=== PATIENT | female | born 1980 | race Caucasian/White ===

== ENCOUNTER 2017-01-11 08:43 | Inpatient (IN) | payer OTHER ==
[~2017-01-11] VITALS: Ht 152.4 cm; Wt 72.1 kg
[~2017-01-11 08:43] MED LIST: EPHEDrine SULFATE 50 MG/ML VIAL IM ONE; ONDANSETRON HCL 4 MG/2 ML VIAL IVP ONE; OXYTOCIN 10 UNITS/ML VIAL IM ONE; PREN1TAB52 PO
[2017-01-11] MEDS ORDERED: RINGERS SOLUTION,LACTATED 1,000 ML IV ONE (08:57)
[2017-01-11] MEDS ORDERED: METOCLOPRAMIDE HCL 5 MG/ML 2 ML VIAL IVP ONE (09:00)
[2017-01-11] MEDS ORDERED: CITRIC ACID/SODIUM CITRATE 30 ML SOLUTION UDCUP PO ONE (09:00)
[2017-01-11 09:39] VITALS: BP 116/79
[2017-01-11 09:56] LABS: BASOPHILS % (AUTO) 0.6 % (0.0-2.0); EOSINOPHILS % (AUTO) 0.3 % (1.0-6.0); HEMATOCRIT 36.4 % (36-46); HEMOGLOBIN 11.6 g/dL (12.0-16.0); LYMPHOCYTES # (AUTO) 2.6 K/uL (1.0-4.8); MEAN CORPUSCULAR HGB CONC 31.7 G/dL (31.0-37.0); MEAN CORPUSCULAR VOLUME 76 fL (80-100); MONOCYTES # (AUTO) 0.6 K/uL (0.1-1.0); MONOCYTES % (AUTO) 6.5 % (2.0-9.0); NEUTROPHILS # (AUTO) 6.3 K/uL (1.8-7.7); NEUTROPHILS % (AUTO) 65.6 % (40.0-70.0); PLATELET COUNT (AUTO) 160 K/uL (150-450); RED BLOOD CELL COUNT(AUTO) 4.82 MIL/uL (4.00-5.20); RED CELL DISTRIBUTION WIDTH 17.5 % (11.5-14.5); WHITE BLOOD COUNT (AUTO) 9.7 K/uL (4.5-11.0)
[2017-01-11 09:57] LABS: RBC MORPHOLOGY COMMENT ABNORMAL RBC MORPH
[2017-01-11] MEDS ORDERED: INFLUENZA VIRUS VACCINE QVS 2016-17 (3YR+)/PF 60 MCG/0.5 ML SYRINGE IM ONE (12:00)
[2017-01-11] MEDS ORDERED: GUM MASTIC/STORAX/MSAL/ALCOHOL LIQUID 0.67 ML VIAL TP ONE (13:08)
[2017-01-11] MEDS ORDERED: OXYTOCIN 30 UNITS/LACT RINGERS 500 ML IV ONE (13:25)
[2017-01-11] MEDS ORDERED: OxyCODONE HCL/ACETAMINOPHEN 5-325 MG TABLET PO PRN (13:30)
[2017-01-11] MEDS ORDERED: LANOLIN 7 GM OINTMENT TP PRN (13:30)
[2017-01-11] MEDS ORDERED: ACETAMINOPHEN 1000 MG/ISO-OSM 100 ML IV PRN (15:00)
[2017-01-11] MEDS ORDERED: FentaNYL CITRATE-PF 100 MCG/2 ML VIAL IVP PRN (15:00)
[2017-01-11] MEDS ORDERED: DiphenhydrAMINE HCL 50 MG/ML VIAL IVP PRN (15:00)
[2017-01-11] MEDS ORDERED: NALOXONE HCL 0.4 MG/ML VIAL IVP PRN (15:00)
[2017-01-11] MEDS ORDERED: KETOROLAC TROMETHAMINE 30 MG/ML VIAL IVP PRN (15:00)
[2017-01-11] MEDS ORDERED: NALBUPHINE HCL 10 MG/ML VIAL IVP PRN ×2 (15:00)
[2017-01-11] MEDS ORDERED: ONDANSETRON HCL 4 MG/2 ML VIAL IVP PRN (15:00)
[2017-01-11] MEDS: RINGERS SOLUTION,LACTATED 1,000 ML IV SCH (18:53)
[2017-01-11] MEDS ORDERED: OXYGEN THERAPY IH SCH (20:00)
[2017-01-12] MEDS: RINGERS SOLUTION,LACTATED 1,000 ML IV SCH (03:09)
[2017-01-12 06:11] LABS: BASOPHILS # (AUTO) 0.05 K/uL (0.00-0.20); BASOPHILS % (AUTO) 0.4 % (0.0-2.0); EOSINOPHILS # (AUTO) 0.03 K/uL (0.00-0.70); EOSINOPHILS % (AUTO) 0.28 % (1.0-6.0); HEMATOCRIT 32.2 % (36-46); HEMOGLOBIN 10.3 g/dL (12.0-16.0); LYMPHOCYTES # (AUTO) 2.6 K/uL (1.0-4.8); LYMPHOCYTES % (AUTO) 21.8 % (22.0-44.0); MEAN CORPUSCULAR HEMOGLOBIN 24.4 pg (26.0-34.0); MEAN CORPUSCULAR VOLUME 76 fL (80-100); MONOCYTES # (AUTO) 0.8 K/uL (0.1-1.0); MONOCYTES % (AUTO) 6.3 % (2.0-9.0); NEUTROPHILS # (AUTO) 8.4 K/uL (1.8-7.7); NEUTROPHILS % (AUTO) 71.2 % (40.0-70.0); RED BLOOD CELL COUNT(AUTO) 4.23 MIL/uL (4.00-5.20); RED CELL DISTRIBUTION WIDTH 19.1 % (11.5-14.5); WHITE BLOOD COUNT (AUTO) 11.8 K/uL (4.5-11.0)
[2017-01-12] MEDS: OXYGEN THERAPY IH SCH (08:00)
[2017-01-12 08:50] LABS: RBC MORPHOLOGY COMMENT ABNORMAL RBC MORPH
[2017-01-12] MEDS: MAGNESIUM HYDROXIDE SUSPENSION 30 ML UDCUP PO SCH ×2 (09:26→21:43)
[2017-01-12] MEDS ORDERED: DiphenhydrAMINE HCL 25 MG CAPSULE PO PRN (10:30)
[2017-01-12] MEDS: IBUPROFEN 800 MG TABLET PO PRN ×2 (13:00→19:00)
[2017-01-12] MEDS: OxyCODONE HCL/ACETAMINOPHEN 5-325 MG TABLET PO PRN (21:45)
[2017-01-13] MEDS: IBUPROFEN 800 MG TABLET PO PRN ×2 (04:21→12:09)
[2017-01-13] MEDS: OXYGEN THERAPY IH SCH (08:00)
[2017-01-13] MEDS: MAGNESIUM HYDROXIDE SUSPENSION 30 ML UDCUP PO SCH ×2 (08:59→21:00)
[2017-01-13] MEDS ORDERED: AMMONIA 1 EA AMP IH ONE (11:05)
[2017-01-13] MEDS: OxyCODONE HCL/ACETAMINOPHEN 5-325 MG TABLET PO PRN (17:10)
[2017-01-14] MEDS: OxyCODONE HCL/ACETAMINOPHEN 5-325 MG TABLET PO PRN ×2 (00:46→07:58)
[2017-01-14] MEDS ORDERED: PERCT PO (09:08)
[2017-01-14] MEDS ORDERED: IBUP-1547 PO (09:10)
[2017-01-14] MEDS ORDERED: DSS100 PO (09:11)
== END 2017-01-14 11:50 | disposition home or self-care (01) | DRG 766 ==
LOC: OBSVTOIN 08:43 → 4S 08:43
PROVIDERS: ADMIT Obstetrics & Gynecology; ATTEND Obstetrics & Gynecology
PROC: 10D00Z1 Extraction of Products of Conception, Low, Open Approach (ICD-10-PCS; principal; 2017-01-11)
PROC: 0UB70ZZ Excision of Bilateral Fallopian Tubes, Open Approach (ICD-10-PCS; 2017-01-11)
DX: O34.211 Maternal care for low transverse scar from previous cesarean delivery (principal); O99.02 Anemia complicating childbirth; O09.523 Supervision of elderly multigravida, third trimester; D64.9 Anemia, unspecified; O75.89 Other specified complications of labor and delivery; M41.9 Scoliosis, unspecified; O99.844 Bariatric surgery status complicating childbirth; Z37.0 Single live birth; Z3A.39 39 weeks gestation of pregnancy; Z28.21 Immunization not carried out because of patient refusal; Z98.890 Other specified postprocedural states; Z30.2 Encounter for sterilization
CPT/HCPCS: 86850; 86900; 86901; 87081; 88302; J0131; J1885; J2300; J2405; J2590; J2765; J3490; J7120